=== PATIENT | male | born 1995 | race Caucasian/White ===

== ENCOUNTER 2020-05-03 23:41 | Emergency (ER) | payer MEDICAID, OTHER ==
[~2020-05-03] VITALS: Ht 172.7 cm; Wt 68.0 kg
--- NOTE | 2020-05-03 23:55 | NUR ---
DR FOX at bedside for MSE.
[2020-05-04] MEDS ORDERED: ALPRAZOLAM 0.25 MG TABLET ONE (00:08)
--- NOTE | 2020-05-04 00:12 | NUR ---
Patient discharged to home in stable condition. Written and verbal after care instructions given. Patient verbalizes understanding of instructions. Stressed follow up or return to ER for worsening s/s. Pt ambulated out of ER with steady gait. No acute distress noted.
[2020-05-04 00:15] VITALS: BP 120/77
[2020-05-04] MEDS ORDERED: ALPRAZOLAM 0.25 MG TABLET PO ONE ×2 (00:15)
== END 2020-05-04 00:20 | disposition home or self-care (01) ==
LOC: ER 23:48
DX: F41.0 Panic disorder [episodic paroxysmal anxiety] (principal); Z76.0 Encounter for issue of repeat prescription
CPT/HCPCS: A4663